=== PATIENT | male | born 1975 | race Caucasian/White ===

== ENCOUNTER 2016-04-13 13:27 | Emergency (ER) | payer OTHER ==
[~2016-04-13] VITALS: Ht 162.6 cm; Wt 66.6 kg
[2016-04-13 14:10] VITALS: BP 137/96; PULSE 88; RESP 16; TEMP 99.1; O2SAT 97
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
[2016-04-13] MEDS ORDERED: PERI0.126 SWISH-SPIT (15:12)
[2016-04-13] MEDS ORDERED: MAGICADU2 SWISH-SPIT (15:12)
[2016-04-13] MEDS ORDERED: IBUP800T23 PO (15:12)
[2016-04-13] MEDS ORDERED: PRED-503 PO (15:12)
[2016-04-13] MEDS ORDERED: CLIN1CAP5 PO (15:12)
[2016-04-13] MEDS ORDERED: KETOROLAC TROMETHAMINE 60 MG/2 ML (IM) VIAL IM ONE (15:15)
[2016-04-13] MEDS ORDERED: CLINDAMYCIN PHOS 600 MG/4 ML VIAL IM ONE (15:15)
[2016-04-13] MEDS ORDERED: predniSONE 20 MG TAB PO ONE (15:15)
[2016-04-13 15:55] VITALS: RESP 16
== END 2016-04-13 16:08 | disposition home or self-care (01) ==
LOC: PHEFT 13:27
DX: K08.89 Other specified disorders of teeth and supporting structures (principal); R60.0 Localized edema; F17.200 Nicotine dependence, unspecified, uncomplicated
CPT/HCPCS: 96372; 99282; J1885; J7512